=== PATIENT | female | born 1955 | race Caucasian/White ===

== ENCOUNTER 2020-04-15 12:03 | Outpatient (CLI) | payer BC, SELFPAY ==
--- NOTE | 2020-04-15 12:42 | ECG_ITS ---
Measurements Intervals [place] Rate: 71 P: 36 [place]: 172 QRS: 9 QRSD: 96 T: 19 QT: 388 QTc: 422 Interpretive Statements SINUS RHYTHM FREQUENT ATRIAL PREMATURE COMPLEXES BORDERLINE R WAVE PROGRESSION, ANTERIOR LEADS BASELINE ARTIFACT- I, III, AVL ABNORMAL ECG Electronically Signed On 04-15-2020 13:05:35 CDT by Navneet Johnston D.O.
[2020-04-15 12:59] LABS: Basophils Absolute Auto 0.1 K/mm3 (0.0-0.1); Basophils Percent Auto 0.8 % (0.2-1.2); Eosinophils Absolute Auto 0.1 K/mm3 (0-0.3); Eosinophils Percent Auto 1.7 % (0-4.4); Hemoglobin 12.5 g/dL (12.0-15.0); Immature Granulocyte Absolute 0.04 K/mm3 (0.00-0.031); Immature Granulocyte Percent A 0.6 % (0-0.5); Lymphocytes Absolute Auto 2.29 K/mm3 (0.9-3.2); Lymphocytes Percent Auto 31.9 % (18.3-44.2); Mean Corpuscular HGB Conc 32.9 g/dl (32-36); Mean Corpuscular Hemoglobin 30.2 pg (26-34); Mean Corpuscular Volume 91.8 fl (80-100); Mean Platelet Volume 11.1 fl (7.4-10.4); Monocytes Absolute Auto 0.4 K/mm3 (0.1-0.6); Neutrophils Absolute Auto 4.3 K/mm3 (1.3-6.7); Platelet Count Result 212 k/mm3 (150-375); Red Blood Count 4.14 M/mm3 (4.2-5.4); Red Cell Distribution Width 12.8 % (11.5-14.5); White Blood Count 7.2 K/mm3 (4.5-10.0)
== END 2020-04-15 12:04 | disposition home or self-care (01) ==
LOC: ANHSURGERY 12:06
PROVIDERS: PCP Family Medicine Adolescent Medicine; Visit Provider Orthopaedic Surgery
DX: M17.12 Unilateral primary osteoarthritis, left knee (principal); Z86.79 Personal history of other diseases of the circulatory system; Z01.818 Encounter for other preprocedural examination; R94.31 Abnormal electrocardiogram [ECG] [EKG]
CPT/HCPCS: 36415; 85025; 93005

== ENCOUNTER 2020-04-23 00:20 | Outpatient (CLI) | payer BC, SELFPAY ==
[2020-04-23 18:00] LABS: SARS-CoV-2 RNA PCR Negative
== END 2020-04-23 00:21 | disposition home or self-care (01) ==
LOC: ANHCOVIDDT 00:20
PROVIDERS: PCP Family Medicine Adolescent Medicine; Visit Provider Orthopaedic Surgery
DX: Z01.818 Encounter for other preprocedural examination (principal); Z11.59 Encounter for screening for other viral diseases
CPT/HCPCS: 87635; C9803; U0003

== ENCOUNTER 2020-04-25 09:57 | Outpatient (CLI) | payer BC, SELFPAY ==
[2020-04-25 10:36] LABS: Urine Cotinine NEGATIVE
[2020-04-25 10:40] LABS: Albumin Level 4.4 g/dL (3.5-5.1); Estimated Glomerular Filt Rate > 60; Glucose 122 mg/dL (65-105)
== END 2020-04-25 09:58 | disposition home or self-care (01) ==
LOC: ANHSURGERY 09:59
PROVIDERS: PCP Family Medicine Adolescent Medicine; Visit Provider Orthopaedic Surgery
DX: M17.12 Unilateral primary osteoarthritis, left knee (principal); Z01.812 Encounter for preprocedural laboratory examination
CPT/HCPCS: 36415; 80307; 82040; 82565; 82947; 83036; 86850; 86900; 86901

== ENCOUNTER 2020-04-26 00:52 | Day surgery (SDC) | payer BC, SELFPAY ==
[2020-04-15 12:25] VITALS: BP 152/86; PULSE 84; RESP 20; TEMP 37.2; O2SAT 98; BMI 36.4
[2020-04-26] VITALS (16 sets, daily range): BP systolic 119–137; BP diastolic 54–76; PULSE 80–101; RESP 12–18; TEMP 36.1–37.1; O2SAT 94–100
--- NOTE | ~2020-04-26 | XR_ITS ---
EXAMINATION: XR knee LT 2V DATE: 04/26/2020 12:17 INDICATION: Total left knee arthroplasty. Postop. TECHNIQUE: 2 views of left knee were obtained. COMPARISON: Left knee radiographs 04/06/2020 FINDINGS: There is a total left knee arthroplasty in near-anatomic alignment with patellar resurfacin g. No fracture. There is gas in the knee joint and soft tissues, consistent with recent surgery. IMPRESSION: 1. Total left knee arthroplasty in near-anatomic alignment. Reviewed, dictated and finalized at location A.
--- NOTE | 2020-04-26 08:07 | WPDANESEPPF ---
Anes - Initial Pre Proc Eval Procedure: Operation Date: 04/26/20 10:00 Proposed Procedures p Left Total Knee Arthroplasty - Gil Watkins MD Date/Time: 04/26/20 08:07 Surgeon: Gil Watkins MD Pre Op Diagnosis: OA Left Knee Patient Data Age: 64 Gender: F Height: 1.73 m Weight: 108.7 kg Last Vital Signs Temp 37.2 C 04/15/20 12:25 Pulse 84 04/15/20 12:25 Resp 20 04/15/20 12:25 BP 152/86 H 04/15/20 12:25 Pulse Ox 98 04/15/20 12:25 Allergies Allergy/AdvReac Type Severity Reaction Status Date / Time No Known Allergies Allergy Verified 04/26/20 08:38 Home Medications Medication Instructions Recorded Confirmed Type flecainide 100 mg tablet 200 mg PO Q12H 04/06/20 04/26/20 History paroxetine HCl 10 mg tablet 10 mg PO DAILY 04/06/20 04/26/20 History aspirin [Aspir-81] 81 mg PO DAILY 04/15/20 04/26/20 History calcium carbonate [Calcium 500] 1,000 mg PO DAILY 04/15/20 04/26/20 History dexlansoprazole [Dexilant] 60 mg PO DAILY 04/15/20 04/26/20 History lactobacillus comb no.10 20,000 mmu cells PO DAILY 04/15/20 04/26/20 History [Probiotic] multivitamin with iron 1 tablet DAILY 04/15/20 04/26/20 History ECG: Date of Service: 04/15/20 Procedure(s): CA 12 lead EKG Accession Number(s): [id number] cc: ~ Measurements Intervals [place] Rate: 71 P: 36 [place]: 172 QRS: 9 QRSD: 96 T: 19 QT: 388 QTc: 422 Interpretive Statements SINUS RHYTHM FREQUENT ATRIAL PREMATURE COMPLEXES BORDERLINE R WAVE PROGRESSION, ANTERIOR LEADS BASELINE ARTIFACT- I, III, AVL ABNORMAL ECG Electronically Signed On 04-15-2020 13:05:35 CDT by Navneet Johnston D.O. Dictated By: Navneet Johnston DO 04/15/20 1310 Patient hx anesthesia problems: none Family hx anesthesia problems: none PMFSH Past Medical History Medical History (Updated 06/02/20 @ 08:09 by Dallas Greene MD) History of atrial fibrillation History of cardiac disorder History of gastrointestinal procedure (~10/2012) Balloon surgery to open esophagus History of gastrointestinal procedure (~10/2017) History of vertigo Obesity Osteoarthritis of left knee Skin cancer SQUAMOUS CELL CARCINOMA LT LOWER LEG REMOVED Surgical History Surgical History History of arthroscopic knee surgery (~2012) Lt Knee History of cholecystectomy (~10/2016) History of gastric surgery (~02/2015) Social History Social History Smoking status: Former smoker Alcohol intake: current Anes - Eval Final PreProcedure Day of Procedure 04/26/20 08:07 Patient weight: obese Heart: regular rate and rhythm Lungs: clear to auscultation and normal air movement Airway: Mallampati scale class II Neurological: alert and oriented Last oral intake: >/= 8 hours ASA classification: III Emergent: no Anesthetic plan: proceed Anesthesia type and monitoring: general LMA Informed Consent: The patient's anesthetic plan and its attendant risks and benefits were discussed with the patient/family/POA. Questions were solicited and answers provided to the satisfaction of the patient/family/POA.
[2020-04-26] MEDS: TRANEXAMIC ACID 1,000MG/ISO100 1,000 MG/100 ML BAG 200 MG IVPB (08:30)
[2020-04-26] MEDS: LACTATED RINGERS 1,000 ML 30 ML IV CONT ×2 (08:30→12:04)
--- NOTE | 2020-04-26 09:22 | WPDHPUPDATE1 ---
History and Physical Update Update Date/Time: 04/26/20 09:22 Procedure changed to TOTAL knee arthroplasty History and Physical has been reviewed, including an updated exam of the patient. There are NO changes in the patient's condition. Risks, benefits, and alternatives have been discussed and questions answered. Patient agrees to proceed with procedure.
--- NOTE | 2020-04-26 09:50 | WPDANESPNB ---
Anes - Peripheral Nerve Block Date/Time: 04/26/20 09:50 I have discussed with the patient/family/POA the placement of a peripheral nerve block for post-operative pain management, including associated risks, benefits, complications, and side effects. Alternative methods of post-operative analgesia were detailed. Questions were solicited and answers provided to the satisfaction of the patient/family/POA. Time-Out: A pre-procedural Time-Out was completed immediately before starting the procedure and confirmed: Patient Identification, Site, Procedure, Patient Position and the Availability of Requisite Equipment. Clinical Indications: Acute post-operative pain management requested by the operative surgeon. Nerve Block Insertion Note Anes-nerve block: adductor canal left Patient position: supine Skin prep: chlorhexidine Needle: 22 gauge, stimulating, insulated echogenic needle. Needle length: 80 mm Technique: ultrasound Technique comment: in plane Injectate: bupivacaine 0.5% with epi 5 mcg/ml (30cc) Observations: tolerated well Complications: none Procedure start time:: 940 Procedure end time:: 945
[2020-04-26] MEDS: ceFAZolin 2 GM/D5W 50 ML 2 GM/50 ML BAG IVPB ×2 (09:55→18:34)
[2020-04-26] MEDS: HYDROMORPHONE HCL 1 MG/ML INJ 0.25 MG IV PUSH ×4 (12:38→12:59)
--- NOTE | 2020-04-26 12:55 | SUR.PHASEI ---
1210 2 VIEWS OF XRAYS TAKEN OF LT KNEE.
--- NOTE | 2020-04-26 13:01 | SUR.PHASEI ---
1300 SPOKE WITH SPOUSE SOTO PER PHONE- UPDATE & ROOM NUMBER [id number] GIVEN.
--- NOTE | 2020-04-26 13:58 | ADMGEN ---
This patient, Gladys Robins, was admitted to Medical Room 247-. Patient/family oriented to hospital policies and general routines including ID bracelet, bed and alarms, visiting hours, pain management, procedures, bathroom and other care routines, personal items, smoking policy, room service/diet, and visiting hours. Valuables list has been completed. Information on how to activate the Rapid Response Team has been discussed. Patient/Family are encouraged to report perceived risks to care and to ask questions if they do not understand what they are told or what they should do.
[2020-04-26] MEDS: MELOXICAM 7.5 MG TABLET PO (16:56)
[2020-04-26] MEDS: FLECAINIDE ACETATE 100 MG TABLET 200 MG PO (20:34)
[2020-04-26] MEDS: DOCUSATE SODIUM 100 MG CAPSULE PO (20:34)
[2020-04-26] MEDS: FAMOTIDINE 20 MG TABLET PO (20:34)
[2020-04-27] VITALS: BP 121/69; PULSE 79; RESP 16; TEMP 36.2; O2SAT 99
[2020-04-27] MEDS: ceFAZolin 2 GM/D5W 50 ML 2 GM/50 ML BAG IVPB ×2 (01:13→09:39)
[2020-04-27 04:00] VITALS: BP 133/69; PULSE 74; RESP 16; TEMP 36.5; O2SAT 98
[2020-04-27 05:02] LABS: Basophils Percent Auto 0.2 % (0.2-1.2); Hematocrit 31.6 % (37.0-47.0); Hemoglobin 10.3 g/dL (12.0-15.0); Immature Granulocyte Percent A 0.8 % (0-0.5); Lymphocytes Absolute Auto 1.44 K/mm3 (0.9-3.2); Lymphocytes Percent Auto 12.2 % (18.3-44.2); Mean Corpuscular HGB Conc 32.6 g/dl (32-36); Mean Corpuscular Hemoglobin 29.9 pg (26-34); Mean Corpuscular Volume 91.9 fl (80-100); Mean Platelet Volume 11.1 fl (7.4-10.4); Monocytes Absolute Auto 0.6 K/mm3 (0.1-0.6); Monocytes Percent Auto 5.4 % (2.6-8.5); Neutrophils Absolute Auto 9.6 K/mm3 (1.3-6.7); Neutrophils Percent Auto 81.4 % (45.5-73.1); Platelet Count Result 179 k/mm3 (150-375); Red Blood Count 3.44 M/mm3 (4.2-5.4); Red Cell Distribution Width 12.8 % (11.5-14.5); White Blood Count 11.8 K/mm3 (4.5-10.0)
[2020-04-27 05:21] LABS: Blood Urea Nitrogen 18 mg/dL (7-17); Calcium 8.6 mg/dL (8.4-10.2); Carbon Dioxide 26 mmol/L (22-30); Chloride 106 mmol/L (98-107); Estimated CRCL calculation 72 ml/min; Estimated Glomerular Filt Rate > 60; Glucose 99 mg/dL (65-105); Potassium 3.9 mmol/L (3.4-5.0); Sodium 138 mmol/L (137-145)
[2020-04-27] MEDS: DOCUSATE SODIUM 100 MG CAPSULE PO (09:36)
[2020-04-27] MEDS: MELOXICAM 7.5 MG TABLET PO (09:36)
[2020-04-27] MEDS: ACIDOPHILUS/BULGARICUS CHEWABLE TABLET 1 TABLET PO (09:37)
[2020-04-27] MEDS: ASPIRIN 81 MG ENTERIC TABLET PO (09:37)
[2020-04-27] MEDS: PANTOPRAZOLE 40 MG TABLET PO (09:37)
[2020-04-27] MEDS: PAROXETINE 10 MG TABLET PO (09:37)
[2020-04-27] MEDS: FAMOTIDINE 20 MG TABLET PO (09:37)
[2020-04-27] MEDS: CALCIUM CARBONATE (OSCAL) 500 MG TABLET 1000 MG PO (09:37)
[2020-04-27] MEDS: THERAPEUTIC MULTIVITAMINS/MINERALS TAB (*BKC) 1 TABLET PO (09:37)
[2020-04-27 09:38] VITALS: PULSE 79
[2020-04-27] MEDS: FLECAINIDE ACETATE 100 MG TABLET 200 MG PO (09:38)
[2020-04-27 10:00] VITALS: BP 116/58; PULSE 72; RESP 16; TEMP 36.2; O2SAT 100
--- NOTE | 2020-04-27 10:29 | PM.DS ---
DS: Admitting Diagnosis Admitting Diagnosis Admitting Diagnosis: Encounter for observation for suspected exposure to other biological agents ruled out DS: Discharge Diagnosis Discharge Diagnosis (1) Status post total knee replacement, left: Code(s): Z96.652 - Presence of left artificial knee joint Status: Acute DS: Summary Hospital Course Reason for hospitalization: Total knee arthroplasty. Hospital Course: Tolerated surgery well. Progressed appropriately with therapy. Status at Discharge Functional status at discharge: uses cane/walker Time Spent with Patient Time attestation: Total time spent providing and/or coordinating discharge services: Exam Const: General: no acute distress Resp: Effort & Inspection: normal respiratory effort Skin: Other: Wound healing well. Mepilex dressing intact. No hematoma or drainage. Neuro: Motor exam (neuro): 5/5 motor strength present throughout Sensory Exam: normal sensation Psych: Mental Status: mental status grossly normal Speech and movement: Normal speech and movement present DS: Data Data Completed and Pending Labs on day of discharge: Labs from last 24 hours 04/27/20 04/27/20 04:37 04:37 WBC 11.8 H RBC 3.44 L Hgb 10.3 L Hct 31.6 L MCV 91.9 MCH 29.9 MCHC 32.6 RDW 12.8 Plt Count 179 MPV 11.1 H Immature Gran % (Auto) 0.8 H Neut % (Auto) 81.4 H Lymph % (Auto) 12.2 L [place] % (Auto) 5.4 Eos % (Auto) 0.0 Baso % (Auto) 0.2 Lymph # (Auto) 1.44 [place] # (Auto) 0.6 Eos # (Auto) 0.0 Baso # (Auto) 0.0 Abs Immat Gran (auto) 0.10 H Absolute Neuts (auto) 9.6 H Absolute Nucleated RBC 0.0 Nucleated RBC % 0.0 Sodium 138 Potassium 3.9 Chloride 106 Carbon Dioxide 26 BUN 18 H Creatinine 0.90 Estim Creat Clear Calc 72 Estimated GFR > 60 Glucose 99 Calcium 8.6 Discharge Plan Discharge Patient Disposition: Home, Self-Care Discharge Instructions: See instruction sheet. Patient Instructions: Joint Replacement Surgery (DC), Knee Replacement (DC) Follow-up/Referrals: Gil Watkins MD [Physician] - Discharge Medications: New oxycodone-acetaminophen 5-325 mg tablet 1 - 2 tablet PO Q4-6H MDD 8 tablets PRN (Reason: pain) Qty: 40 RF: 0 Continued flecainide 100 mg tablet 200 mg PO Q12H RF: 0 paroxetine HCl 10 mg tablet 10 mg PO DAILY RF: 0 aspirin [Aspir-81] 81 mg Tablet,Delayed Release (Dr/Ec) 81 mg PO DAILY RF: 0 calcium carbonate [Calcium 500] 500 mg calcium (1,250 mg) Tablet 1,000 mg PO DAILY RF: 0 multivitamin with iron Tablet 1 tablet DAILY RF: 0 Dexilant 60 mg Capsule,Biphase Delayed Releas 60 mg PO DAILY RF: 0 Probiotic 20 billion cell Capsule 20,000 mmu cells PO DAILY RF: 0 Quality VTE Prophylaxis VTE prophylaxis: mechanical ordered (KEMI vázquez and Sylvia)
--- NOTE | 2020-04-27 11:05 | P.OP_ITS ---
Procedure Note - Detailed Date of procedure: 04/26/20 Pre-op diagnosis: OA Left Knee Post-op diagnosis: same Procedure performed: Total knee arthroplasty, left. Implants: April [employer] size 3 press-fit femur, size 4 cemented low-profile tibia, 9 mm polyethylene insert, 35 mm asymmetric metal backed patellar component. Anesthesia: GETA and regional (subsartorial nerve block) Surgeon: Gil Watkins MD Estimated blood loss (mL): 100 Drains: No Complications: None Findings: OPERATIVE DETAILS: The patient was given a nerve block preoperatively, and then brought to the operating room. A general anesthetic was administered. The leg was prepped and draped in the usual sterile fashion. The limb was elevated and the tourniquet inflated to 300 mmHg during initial exposure, and cementation. A longitudinal incision was created along the medial border of the patella and patellar tendon, and a minimally invasive optimized mid-vastus approach to the knee was performed. A mild medial release was taken. The knee was then flexed. The osteophytes were carefully removed. The intramedullary guide was placed in the femoral canal. The distal femoral resection was then taken with the oscillating saw. The collateral ligaments were carefully protected. The tibia was carefully exposed. The jig was applied, and the proximal tibia was resected according to preoperative plan. The knee was balanced in extension. Appropriate releases were taken where needed. The anterior cruciate ligament and meniscal remnants were removed. The posterior cruciate ligament was preserved. The patella was measured. Patellar resection was carried out with the oscillating saw. The lug holes drilled. The femur was sized and rotation assessed using a combination of gap balancing, posterior referencing, and the AP axis. The 4 in 1 cutting block was used to finish the femoral cuts after equal gaps were assured. The lug holes were drilled. The osteophytes were carefully removed from the back of the knee. The knee was copiously irrigated with antibiotic solution periodically throughout the procedure. The meniscal remnants were removed. The spacer block was used to confirm equal flexion and extension gaps. The tibia was sized and broached. The bony surfaces were prepared for cementing with pulsatile lavage. The real tibial component was cemented into position followed by press fitting the femoral component. Excess cement was carefully removed. The patella component was press- fit. Patellar tracking was carefully assessed. Slight additional PCL release was required. The wound was closed with #1 Vycril suture, #2 Quill suture, 0-Quill suture, and 2-0 Quill suture followed by Steri-Strips. A sterile bulky dressing was applied. Meticulous hemostasis was maintained throughout the procedure. There were no complications. The patient was extubated and brought to the recovery room in stable condition after the application of sterile dressing with Salty bandage.
== END 2020-04-27 11:56 | disposition home or self-care (01) ==
LOC: ANHSURGERY 07:47 → ANH2MED 13:17
PROVIDERS: PCP Family Medicine Adolescent Medicine; Visit Provider Orthopaedic Surgery
PROC: (CPT 27447; principal; 2020-04-26 10:00)
DX: M17.12 Unilateral primary osteoarthritis, left knee (principal); G89.18 Other acute postprocedural pain; Z79.82 Long term (current) use of aspirin; Z87.891 Personal history of nicotine dependence; E66.9 Obesity, unspecified; Z68.36 Body mass index [BMI] 36.0-36.9, adult
CPT/HCPCS: 27447; 64447; 36415; 73560; 80048; 85025; 97110; 97116; 97161; 97165; 97530; A9270; C1713; C1776; J0131; J0171; J0690; J1100; J1170; J1200; J1885; J2250; J2270; J2405; J2704; J2795; J3010; J7120

== ENCOUNTER → 2021-06-29 15:20 | Outpatient (CLI) | payer OTHER, SELFPAY ==
--- NOTE | ~2021-06-29 | MM_ITS ---
EXAMINATION: MM screening [facility] BI w jeanie HISTORY: Screening TECHNIQUE: Craniocaudal and mediolateral oblique 3-D tomosynthesis images were obtained and synthetic 2-D images were generated. CAD analysis was submitted and interpreted. COMPARISON: No prior mammogram is available for comparison at this institution. BREAST PARENCHYMAL COMPOSITION: There are scattered areas of fibroglandular density. FINDINGS: No significant change to benign left breast mass in the outer aspect of the left breast, pr eviously characterized as intramammary lymph node by ultrasound. There is no evidence of suspicious m ass, calcification, or architectural distortion to suggest malignancy in either breast. There has bee n no suspicious interval change. IMPRESSION: 1. No mammographic evidence of malignancy. 2. Recommend routine screening mammography in one year. BI-RADS Category 2: Benign finding(s). Reviewed, dictated and finalized at location A.
== END ==
PROVIDERS: PCP Family Medicine Adolescent Medicine; Visit Provider Family Medicine Adolescent Medicine
DX: Z12.31 Encounter for screening mammogram for malignant neoplasm of breast (principal)
CPT/HCPCS: 77063; 77067

== ENCOUNTER → 2022-09-11 13:37 | Outpatient (CLI) | payer OTHER, SELFPAY ==
--- NOTE | ~2022-09-11 | MM_ITS ---
EXAMINATION: MM screening [facility] BI w jeanie HISTORY: Screening TECHNIQUE: Craniocaudal and mediolateral oblique 3-D tomosynthesis images were obtained and synthetic 2-D images were generated. CAD analysis was submitted and interpreted. COMPARISON: Comparison to multiple prior studies sequentially, with oldest reviewed study dated 02/05. BREAST PARENCHYMAL COMPOSITION: Breast composed of scattered areas of fibroglandular density FINDINGS: Focal mass in the upper outer quadrant of the left breast is unchanged, previously characte rized as an intramammary lymph node. There is no evidence of suspicious mass, calcification, or archi tectural distortion to suggest malignancy in either breast. There has been no suspicious interval chanda nge. IMPRESSION: 1. No mammographic evidence of malignancy. 2. Recommend routine screening mammography in one year. BI-RADS Category 2: Benign finding(s). Reviewed, dictated and finalized at location A.
== END ==
PROVIDERS: PCP Family Medicine Adolescent Medicine; Visit Provider Family Medicine Adolescent Medicine
DX: Z12.31 Encounter for screening mammogram for malignant neoplasm of breast (principal)
CPT/HCPCS: 77063; 77067

== ENCOUNTER 2023-10-11 11:55 | Emergency (ER) | payer OTHER, SELFPAY ==
[2023-10-11 12:07] VITALS: BP 138/74; PULSE 80; RESP 16; TEMP 37.5; O2SAT 98
--- NOTE | 2023-10-11 12:41 | ED.GENADULT ---
HPI - General Adult General Chief complaint: Upper Respiratory Infection Stated complaint: earache,cough,sore throat Time Seen by Provider: 10/11/23 12:41 Source: patient, RN notes reviewed and old records reviewed Mode of arrival: ambulatory Limitations: no limitations History of Present Illness HPI narrative: 68-year-old female presents to the [facility] with complaints of earache, cough and sore throat that started approximately a week and half ago. For the last several days has symptoms have been improving. But still having a fullness to her ears. Related Data Home Medications Medication Instructions Recorded Confirmed aspirin 81 mg tablet,delayed 81 mg PO DAILY 04/15/20 10/11/23 release (Aspir-) calcium carbonate 500 mg calcium 1,000 mg PO DAILY 04/15/20 10/11/23 (1,250 mg) tablet (Calcium 500) lactobacillus comb no.10 20 20,000 mmu cells PO DAILY 04/15/20 10/11/23 billion cell capsule (Probiotic) paroxetine HCl 10 mg tablet 10 mg PO DAILY 12/08/21 10/11/23 omeprazole 20 mg capsule,delayed 40 mg PO DAILY 02/12/22 10/11/23 release Allergies Allergy/AdvReac Type Severity Reaction Status Date / Time No Known Allergies Allergy Verified 10/11/23 12:18 Review of Systems Review of Systems: All systems reviewed & are unremarkable except as noted in HPI and below Constitutional: Constitutional: Reports no additional constitutional complaints Eyes: Eyes: Reports no additional eye complaints ENT: Reports as per HPI Cardiovascular: Cardiovascular: Reports no additional cardiovascular complaints, Denies chest pain and Denies dyspnea Respiratory: Respiratory: Reports no additional respiratory complaints, Denies chest congestion, Denies cough and Denies dyspnea Gastrointestinal: Gastrointestinal: Reports no additional gastrointestinal complaints, Denies abdominal pain, Denies nausea and Denies vomiting Musculoskeletal: Musculoskeletal: Reports no additional musculoskeletal complaints Integumentary/Breasts: Skin/Breast: Reports system reviewed and no additional complaints, except as docu Neurologic: Reports system reviewed and no additional complaints, except as documented Psychiatric: Psychiatric: Reports no additional psychiatric complaints Allergic/Immunologic: Allergic/Immunologic: Reports no additional allergic/immunologic complaints PMFSH Past Medical History Medical History History of atrial fibrillation History of cardiac disorder History of gastrointestinal procedure (~10/2012) Balloon surgery to open esophagus History of gastrointestinal procedure (~10/2017) History of vertigo Major depressive disorder, recurrent, mild Obesity Osteoarthritis of left knee Osteoarthritis of right knee Paroxysmal A-fib (2004) Pure hypercholesterolemia, unspecified Skin cancer SQUAMOUS CELL CARCINOMA LT LOWER LEG REMOVED Surgical History Surgical History History of arthroscopic knee surgery (2012) Lt Knee History of cholecystectomy (~10/2016) History of endometrial ablation History of gastric surgery (~02/2015) 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 Father Diabetes mellitus Cancer Carcinoma of colon Hypertension Mother Diabetes mellitus Breast cancer Acute myocardial infarction Heart disease Hypertension Sibling Diabetes mellitus Melanoma Social History Social History Smoking status: Former smoker Tobacco type: cigarettes Second hand tobacco smoke exposure: No Smoking end date: 11/25/79 Alcohol intake: current Drinks per week: 2 Alcohol use details: 1-2 drinks per week Substance use: never Substance use type: does not use Living arrangements: wi
== END 2023-10-11 12:59 | disposition home or self-care (01) ==
PROVIDERS: Emergency Provider Nurse Practitioner; PCP Family Medicine Adolescent Medicine
DX: J06.9 Acute upper respiratory infection, unspecified (principal); H65.03 Acute serous otitis media, bilateral; Z87.891 Personal history of nicotine dependence; I48.91 Unspecified atrial fibrillation; E66.9 Obesity, unspecified; Z68.31 Body mass index [BMI] 31.0-31.9, adult; M17.0 Bilateral primary osteoarthritis of knee; I48.0 Paroxysmal atrial fibrillation; E78.00 Pure hypercholesterolemia, unspecified; Z85.828 Personal history of other malignant neoplasm of skin; Z96.652 Presence of left artificial knee joint; Z79.82 Long term (current) use of aspirin; F33.8 Other recurrent depressive disorders
CPT/HCPCS: 99213; G0463

== ENCOUNTER → 2023-12-06 11:24 | Outpatient (CLI) | payer OTHER, SELFPAY ==
--- NOTE | ~2023-12-06 | MM_ITS ---
EXAMINATION: MM screening s[facility] BI w jeanie HISTORY: Screening mammogram, family history of breast cancer in her mother. TECHNIQUE: Craniocaudal and mediolateral oblique 3-D tomosynthesis images were obtained and synthetic 2-D images were generated. CAD analysis was submitted and interpreted. COMPARISON: 09/11/2022, 06/29/2021, 09/17/2019, 03/16/2019, 03/07/2019 BREAST PARENCHYMAL COMPOSITION: There are scattered areas of fibroglandular density. FINDINGS: A stable mass in the upper outer quadrant of the left breast is considered benign given the lack of interval change. No suspicious mass, calcification, or architectural distortion are identifi ed in either breast to suggest malignancy. There has been no suspicious interval change. IMPRESSION: 1. No mammographic evidence of malignancy. 2. Recommend routine screening mammography in one year. BI-RADS Category 2: Benign finding(s). Reviewed, dictated and finalized at location A. Y ROLLER
--- NOTE | ~2023-12-06 | DEXA_ITS ---
Bone Density Report Name: LAURENCE DELA CRUZ Age: 68 Sex: Female Ethnicity: White Date of : 1955 Indication: postmenopausal; screening for osteoporosis; height loss; inflammatory bowel disease; Referring Provider: ADINA SAUNDERS Study: Bone densitometry was performed. Exam Date: December 06, 2023 Accession number: [id number] Bone Density: Region BMD T-score Z-score Classification AP Spine (L1-L4) 1.034 -0.1 1.8 Normal Femoral Neck (Left) 0.780 -0.6 1.0 Normal Total Hip (Left) 1.047 0.9 2.2 Normal Femoral Neck (Right) 0.833 -0.1 1.5 Normal Total Hip (Right) 1.043 0.8 2.2 Normal Total Hip Mean 1.045 0.9 2.2 Normal World Health Organization criteria for BMD impression classify patients as: Normal (T-score at or above -1.0), Osteopenia (T-score between -1.0 and -2.5), or Osteoporosis (T-score at or below -2.5). 10-year Fracture Risk: FRAX not reported because: All T-scores for Spine Total, Hip Total, Femoral Neck at or above -1.0 Clinical Information Provided by Patient: Has the following medical conditions: Inflammatory bowel diseases Patient maximum height was 68.5 Menopause Age: 41 No regular weight bearing exercise Drinks caffeinated beverages Onset of menses at age 14 Number of children 2 Impression: The patient has normal bone mass. Discussion: BONE DENSITY IS ABOVE THE MINIMUM DESIRABLE LEVEL AT ALL SKELETAL SITES TESTED. This patient?s bone mineral density is above the minimum desirable level (T-score -1.0 or better) at all sites measured. The patient should follow a healthful lifestyle (good nutrition with adequate calcium and vitamin D, and appropriate weight-bearing exercise). Follow-Up: Consider repeating this study in 5 years or sooner if there is some new clinical indication. Reported by: [facility] on 12/06/2023 12:06:00 PM. Reviewed, dictated and finalized at location ARekha SANCHEZ
== END ==
PROVIDERS: PCP Family Medicine Adolescent Medicine; Visit Provider Nurse Practitioner Family
DX: Z12.31 Encounter for screening mammogram for malignant neoplasm of breast (principal); M81.0 Age-related osteoporosis without current pathological fracture
CPT/HCPCS: 77063; 77067; 77080

== ENCOUNTER 2024-03-05 14:12 | Outpatient (CLI) | payer OTHER, SELFPAY ==
--- NOTE | ~2024-03-05 | US_ITS ---
EXAMINATION: US pelvic complete w TV DATE: 03/05/2024 14:51 INDICATION: Postmenopausal bleeding Comparison:No prior studies for comparison. TECHNIQUE: Multiple transabdominal and endovaginal sonographic images of the pelvis performed. FINDINGS: The uterus measures 6.6 x 2.1 x 3.2 cm. The endometrial complex measures 3-4 mm. The right ovary measures 2.4 x 1.3 x 1.8 cm. The left ovary is not visualized. There is no free fluid in the pelvis. There are no abnormal masses seen on either side. IMPRESSION: 1. Unremarkable pelvic ultrasound. Reviewed, dictated and finalized at location A.
== END 2024-03-05 14:13 ==
LOC: MICIMG 14:13
PROVIDERS: PCP Nurse Practitioner Family; Visit Provider Nurse Practitioner Family
DX: N95.0 Postmenopausal bleeding (principal)
CPT/HCPCS: 76830; 76856

== ENCOUNTER 2024-07-06 11:39 | Outpatient (CLI) | payer OTHER, SELFPAY ==
--- NOTE | ~2024-07-06 | US_ITS ---
EXAMINATION: US pelvic complete w TV DATE: 07/06/2024 12:10 INDICATION: Abnormal findings on diagnostic imaging. TECHNIQUE: Multiple transabdominal and transvaginal sonographic images of the pelvis were obtained. COMPARISON: Ultrasound 03/05/2024 FINDINGS: TRANSABDOMINAL ULTRASOUND: The uterus measures 6.2 x 2.8 x 3.3 cm. There is no free fluid in the pelvis. TRANSVAGINAL ULTRASOUND: The endometrial complex measures 5 mm in thickness. There is a 13 mm submucosal fibroid. The right ov abhishek measures 1.5 x 1.2 x 2.4 cm. The left ovary is not visualized. IMPRESSION: 1. 13 mm submucosal fibroid. Reviewed, dictated and finalized at location A.
== END 2024-07-06 11:40 ==
LOC: MICIMG 11:40
PROVIDERS: PCP Nurse Practitioner Family; Visit Provider Nurse Practitioner Obstetrics & Gynecology
DX: R93.5 Abnormal findings on diagnostic imaging of other abdominal regions, including retroperitoneum (principal); D25.0 Submucous leiomyoma of uterus
CPT/HCPCS: 76830; 76856

== ENCOUNTER 2024-07-17 00:28 | Day surgery (SDC) | payer OTHER, SELFPAY ==
[2024-07-14 08:55] VITALS: BMI 31.8
--- NOTE | 2024-07-14 09:16 | PC.NURSE ---
Report to the Outpatient Waiting Room, entrance under the green pavilion located off [facility], at time ___8:45AM____ on date ___07/17/24____. Planned Procedure Time: __10:45AM . Time changes happen often and if your time is changed the preop area will call you the afternoon before. - You and your visitor will be asked to self-screen and do not enter if you have any COVID symptoms. - A mask is optional within the hospital at this time. Patients may have clear liquids (water, carbonated beverages, clear teas, apple juice) until 3 hours prior to surgery with a maximum of 20 ounces. - No food from midnight until time of surgery. Take the following medications with a SIP of water the morning of surgery: __BUPROPION & VENLAFAXINE. MAY TAKE MECLIZINE NEEDED. DO NOT STOP ANY OF YOUR OTHER PRESCRIPTION MEDICATIONS PRIOR TO SURGERY ?EXCEPT THE FOLLOWING Medications to discontinue per physician ___HOLD ASPIRIN 4 DAYS PRE-OP PER DR RODRIGUEZ, PER PATIENT- LAST DOSE 07/12/24. HOLD ALL VITAMINS/SUPPLEMENTS 3 DAYS PRE-OP PER ANESTHESIA- LAST DOSE 07/13/24. Please no make-up, nail occitan, hairspray, perfume, deodorant, or body powder the day of surgery. No jewelry (including any body piercings) or valuables the day of surgery, leave them at home. Please take a shower or bath the night before, or the morning of, surgery with an antibacterial soap. Wear comfortable, loose fitting clothing. - Jewelry must be removed prior to entering the operating room. Rings and piercings that are not removed may be cut off. - The hospital will not accept responsibility for valuables. - Please leave all valuables, including medications, at home the day of surgery. If you are going home after surgery, a licensed tractor sweeper driver must drive you home. - NO public transportation without another adult if you receive anesthesia. - We recommend that an adult stay with you for 24 hours following discharge. - We also recommend that you do not drive, make important decision, drink alcoholic beverages, or take any drugs that were not prescribed by your health care provider for at least 24 hours after your discharge time. Follow any additional instructions given to you from your surgeon. If you or anyone in your household have experienced Covid symptoms in the past week, please notify your surgeon or the nurse liaison at the phone number below for possible testing. Telephone instructions given to ____PATIENT and asked if any additional questions and then verbalized understanding. Patient advised to call surgeon office or pre surgery nurse liaison [phone] if any additional questions.
[2024-07-17] MEDS: LACTATED RINGERS 1,000 ML 30 ML IV CONT (09:01)
[2024-07-17] MEDS: ACETAMINOPHEN 500 MG TABLET 1000 MG PO (09:01)
--- NOTE | 2024-07-17 09:05 | WPDANESEPPF ---
Anes - Initial Pre Proc Eval Procedure: Operation Date: 07/17/24 09:45 Proposed Procedures p Loop Electrical Excision Procedure - Chris Donald MD s Hysteroscopy, Dilation and Curettage with Removal of Endometrial Lesions if Needed - Chris Donald MD Date/Time: 07/17/24 09:05 Surgeon: Chris Donald MD Pre Op Diagnosis: Thickened Endometrium, Post Menopausal Bleed Patient Data Age: 69 Gender: F Height: 1.73 m Weight: 95 kg Allergies Allergy/AdvReac Type Severity Reaction Status Date / Time No Known Allergies Allergy Verified 07/14/24 08:47 Home Medications Medication Instructions Recorded Confirmed Type aspirin 81 mg tablet,delayed 81 mg PO DAILY 04/15/20 07/14/24 History release (Aspir-) calcium carbonate (Calcium 500) 1,000 mg PO DAILY 04/15/20 07/14/24 History bupropion HCl 300 mg 24 hr tablet, See Rx Instructions .Route 02/19/24 07/14/24 Rx extended release .COMPLEX #90 tabs meclizine 25 mg tablet 25 mg PO TID PRN dizziness #30 tabs 05/04/24 07/14/24 Rx multivitamin (Daily Multi-Vitamin 1 tablet PO DAILY 05/15/24 07/14/24 History tablet) psyllium husk 0.4 gram capsule 0.4 g PO DAILY PRN Constipation 05/15/24 07/14/24 History (Metamucil) dicyclomine 10 mg capsule 10 mg PO ONCE #90 caps 05/20/24 07/14/24 Rx venlafaxine 37.5 mg 37.5 mg PO DAILY #60 caps 07/03/24 07/14/24 Rx capsule,extended release 24 hr omeprazole 40 mg capsule,delayed 40 mg PO QAM 07/14/24 07/14/24 History release Patient hx anesthesia problems: none Family hx anesthesia problems: none Results Review: All pre-operative results and documents have been reviewed as part of the pre-operative evaluation. [facility] Past Medical History Medical History History of atrial fibrillation History of cardiac disorder History of gastrointestinal procedure (~10/2012) Balloon surgery to open esophagus History of gastrointestinal procedure (~10/2017) History of vertigo Major depressive disorder, recurrent, mild Obesity Osteoarthritis of left knee Osteoarthritis of right knee Paroxysmal A-fib (2004) Pure hypercholesterolemia, unspecified Skin cancer SQUAMOUS CELL CARCINOMA LT LOWER LEG REMOVED Surgical History Surgical History History of arthroscopic knee surgery (2012) Lt Knee History of cholecystectomy (~10/2016) History of endometrial ablation History of gastric surgery (~02/2015) 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 Father Diabetes mellitus Cancer Carcinoma of colon Hypertension Heart disease Mother Diabetes mellitus Breast cancer Acute myocardial infarction Heart disease Hypertension Sibling Diabetes mellitus Melanoma Hypertension Cerebrovascular accident Social History Social History Smoking packs per day: 0.5 Smoking cigarettes per day: 10.0 Years smoked: 9 Smoking pack-years: 4.50 Smoking status: Former smoker Tobacco type: cigarettes Second hand tobacco smoke exposure: No Smoking end date: 05/25/79 Alcohol intake: current Drinks per week: 2 Alcohol use details: 1-2 drinks per week Substance use: never Substance use type: does not use Living arrangements: with family Additional living arrangements comments: SPOUSE, CHILDREN, GRANDCHILDREN Occupation/Education: retired Gender identity (if verbalized by the patient): Female Sexual Orientation (if Verbalized by the Patient): Straight or Heterosexual Spiritual care concerns: No Agree to blood products: Yes Anes - Eval Final PreProcedure Day of Procedure 07/17/24 09:05 Patient weight: obese Heart: regular rate and rhythm Lungs: c
[2024-07-17 09:30] VITALS: BP 140/74; PULSE 85; RESP 16; TEMP 36.5; O2SAT 99; BMI 30.3
--- NOTE | 2024-07-17 09:37 | WPDHPUPDATE1 ---
History and Physical Update Update Date/Time: 07/17/24 09:37 History and Physical has been reviewed, including an updated exam of the patient. There are NO changes in the patient's condition. Risks, benefits, and alternatives have been discussed and questions answered. Patient agrees to proceed with procedure.
[2024-07-17] MEDS: LIDOCAINE HCL 1% LOCAL INJ 20 ML VIAL 10 ML INFILTRATE (10:07)
[2024-07-17] MEDS: ceFAZolin 2 GM/D5W 50 ML 2 GM/50 ML BAG IVPB (10:07)
[2024-07-17] MEDS: IODINE/POTASSIUM IODIDE 8 ML SOLUTION TOPICAL (10:07)
[2024-07-17] MEDS: LIDO 1%/EPINEPHRINE 1:100,000 50 ML VIAL 10 ML INFILTRATE (10:07)
[2024-07-17 10:47] VITALS: BP 131/64; PULSE 79; RESP 20; O2SAT 99
--- NOTE | 2024-07-17 10:57 | W.PM.PROC2 ---
Procedure Note - Detailed Date of Procedure 07/17/24 Pre-op Diagnosis Thickened Endometrium, Post Menopausal Bleed Post-op Diagnosis Same Procedure Performed diagnostic hysteroscopy 2. Loop electrosurgical excision procedure Surgeon Chris Donald MD Anesthesia MAC and Local Indications abnormal Pap smear with subsequent colposcopy biopsy showing JOSE LUIS 2. Patient also with history of postmenopausal bleeding and follow-up ultrasound showed thickened endometrial stripe she was recommended for endometrial sampling and opted for D and C hysteroscopy. Findings Uterine cavity was sound to 5 cm there is overall scarring in the uterine cavity and atrophy. No abnormal lesions. Minimal tissue obtained with curettage. Lugol solution on the cervix showed slight decreased uptake at 12:00 p.m.. Description of Procedure After informed consent was obtained patient was taken to the operating room and adequate IV sedation was administered. Attention was turned to the vagina. Speculum was inserted. Single-tooth tenaculum placed on the anterior lip of the cervix. 1% Plain lidocaine was injected at the cervical vaginal interface at 2:58 a.m. in 10 position total of 10 cc. The uterus was sounded to 5cm. The cervix was dilated to an 6 Yarbrough dilator. The hysteroscope was inserted into the cavity. The findings were scarred atrophic cavity no abnormal lesions. The hysteroscope was removed And a curettage was performed minimal tissue obtained. Lugol?s solution was painted along the entire cervix and vaginal wall. Areas of non-uptake were noted to be around the entire squamocolumnar junction. 6 cc of lidocaine with epinephrine was injected at surgical site. The large loop electrode was used to remove the anterior or top portion of the cervix and a separate posterior specimen which included all of the hypopigmented area was excised and sent to pathology. The smallest loop electrode was used to obtain a top hat for excision of the endocervix. The bed of the excised cervical tissue along the cervix was cauterized using the roller ball. Hemostasis was noted. All instruments were removed from vagina at this point. The patient tolerated the procedure well without complication and was taken to the recovery room in stable condition. Estimated Blood Loss 5 Drains No Packing No Pathology Yes ( 1. Endometrial curettings scant 2. Ectocervix anterior 3. Ectocervix posterior 4. Endocervix) Complications No immediate complications Condition Stable Disposition Same day [facility] Billing Surgery - Charge Forward: Surgery Billing
[2024-07-17 11:20] VITALS: BP 155/61; PULSE 65; RESP 16
== END 2024-07-17 11:45 | disposition home or self-care (01) ==
PROVIDERS: PCP Nurse Practitioner Family; Visit Provider Obstetrics & Gynecology
PROC: 0UBC7ZZ Excision of Cervix, Via Natural or Artificial Opening (ICD-10-PCS; CPT 57522; principal; 2024-07-17 09:45)
PROC: 0U5B8ZZ Destruction of Endometrium, Via Natural or Artificial Opening Endoscopic (ICD-10-PCS; CPT 58563; 2024-07-17 09:45)
DX: N95.0 Postmenopausal bleeding (principal); R93.89 Abnormal findings on diagnostic imaging of other specified body structures; N87.1 Moderate cervical dysplasia; I48.0 Paroxysmal atrial fibrillation; E78.00 Pure hypercholesterolemia, unspecified; Z87.891 Personal history of nicotine dependence
CPT/HCPCS: 57522; 88305; 88307; A9270; J0690; J2250; J2405; J2704; J3010; J7120